=== PATIENT | female | born 1960 | race Caucasian/White ===

== ENCOUNTER 2020-10-27 13:24 | Outpatient (CLI) | payer MEDICARE, MEDICAID, SELFPAY ==
--- NOTE | ~2020-10-27 | XR_ITS ---
XR chest 2V DATE: 10/27/2020 13:45 INDICATION: Cough. History of lung cancer. Smoker. TECHNIQUE: PA and lateral views COMPARISON: 07/14/2019 portable AP chest 07/10/2019 CT chest FINDINGS: There is a spiculated approximately 1.5 cm mass density overlying the left suprahilar area, with patchy increased density in the left perihilar area. There is discoid atelectasis or scarring i n the left lower lung. There is mild infiltrate or atelectasis at the right lung base. Normal heart size. No pleural effusions. No pulmonary vascular congestion or pneumothorax. Right Port-A-Cath catheter tip overlies the caudal aspect of the superior vena cava. Status post cholecystectomy. IMPRESSION: Irregular spiculated mass overlying left suprahilar area is of concern for new malignancy . There is left perihilar infiltrate which may be due to any combination of adenopathy, postoperative radiation change or pneumonia. Mild infiltrate or atelectasis at right lung base Right-sided Port-A-Cath Reviewed, dictated and finalized at location A. [facility] ASSISTANT IMPRESSION: Irregular spiculated mass overlying left suprahilar area is of conc gray for new malignancy. There is left perihilar infiltrate which may be due to any combination of adenopathy, postoperative radiation change or pneumonia. Mild infiltrate or atelectasis at right lung base Right-sided Port-A-Cath
== END 2020-10-27 13:25 | disposition home or self-care (01) ==
PROVIDERS: PCP Family Medicine; Visit Provider Nurse Practitioner
DX: R05 Cough (principal); J44.9 Chronic obstructive pulmonary disease, unspecified; Z01.818 Encounter for other preprocedural examination; R91.8 Other nonspecific abnormal finding of lung field
CPT/HCPCS: 71046

== ENCOUNTER 2022-09-06 12:33 | Outpatient (RCR) | payer MEDICARE, MEDICAID, SELFPAY ==
--- NOTE | 2022-09-06 16:37 | STOPEVAL1 ---
Assessment and note entered by Nila Crews, [employer] Evaluation Information Assessment Status Evaluation Diagnosis Dysphagia Subjective Information Patient reports history of lung cancer diagnosed three years ago, with chemotherapy and radiation. She stated that she was supposed to undergo hysterectomy but they found the cancer and pursued that. Patient then clarified that she had the hysterectomy three months ago, and then after that, she would wake up dizzy and began falling maybe six weeks ago. She states she then had surgery to remove the brain cancer on August 23 and after that began to have difficulty swallowing. Reported Pain Level Pain Score 10: Self Report Assessment ST Clinical Summary BEDSIDE SWALLOW EVALUATION This patient was seen for a Swallow Evaluation at the request of her physician. She reports a history of cancer resulting in chemotherapy and radiation and then a decrease in swallowing skills after having brain surgery on August 23, 2022. See above for patient version of history. Today the patient stated: When I drink, I get choked. She stated that she just can't swallow and she says that she is not eating or drinking anything to maintain her weight. Patient reported she had been drinking Ensure shakes but they caused diarrhea. Now, she takes a bite or two of whatever her mom makes although hamburger crumbles are difficult to swallow. She then reported that she has a hard straw and this seem to help her drink liquids. Today the patient was given a glass of water and was asked to take a sip. She allowed the liquid in her mouth and then immediately expectorated it onto the floor, stating that she was afraid she would become choked. Patient later consumed a cup of pudding quickly and with no difficulty, stating that she was hungry, and then ate most of a cup of cut-up peaches, occasionally expectorating one piece of peach, on two occasions. José cracker was not presented. A Modified Barium S
--- NOTE | 2022-10-08 15:18 | PCSTNOTE ---
A Modified Barium Swallow (MBS) study was requested but never ordered. Therapist contacted patient mother who stated that Salma is not eating very much and Hospice has been considered but not initiated at this time. Patient will be seeing physician soon and therapist requested they send a new order if the MBS is to be ordered or ST is to be continued. Therapist will discharge this chart.
== END 2022-10-09 13:45 | disposition home or self-care (01) ==
LOC: ANHST 12:33
PROVIDERS: PCP Family Medicine; Visit Provider Nurse Practitioner Adult Health
DX: R13.19 Other dysphagia (principal)
CPT/HCPCS: 92610